=== PATIENT | male | born 1995 | race Caucasian/White ===

== ENCOUNTER 2017-09-15 20:01 | Emergency (ER) | payer OTHER, MEDICAID ==
[~2017-09-15] VITALS: Ht 188 cm; Wt 191.4 kg
--- OUTSIDE RECORDS SUMMARY | 2017-09-15 20:16 | External Medical Summary Rpt | CCD ---
Author Author SIOBHAN Address Unknown Phone Purpose Continuity of Care Document - through 2016
--- OUTSIDE RECORDS SUMMARY | 2017-09-15 20:17 | External Medical Summary Rpt | CCD ---
Author Author , SIOBHAN MCCANN Address Unknown Phone [email or web address] Immunization Name Date Rout CVX Reac Dose Comm Prov Is Faci e tion ent ider Refu lity Give sed n MMR 01- 3 999 Hist H191 No H191 0-19 oric 96 al Info rmat ion - Sour ce Unsp ecif ied DTP- -3 22 999 Hist H191 No H191 Hib 0-19 oric 96 al Info rmat ion - Sour ce Unsp ecif ied
--- OUTSIDE RECORDS SUMMARY | 2017-09-15 20:17 | External Medical Summary Rpt | CCD ---
Author Author , SIOBHAN MCCANN Address Unknown Phone [email or web address] Immunization Name Date Rout CVX Reac Dose [...]
--- OUTSIDE RECORDS SUMMARY | 2017-09-15 20:17 | External Medical Summary Rpt | CCD ---
Author Author [employer] Organization [employer] Address Unknown Phone Unavailable Purpose Continuity of Care Document - through 2016
--- OUTSIDE RECORDS SUMMARY | 2017-09-15 20:17 | External Medical Summary Rpt ---
Author Author SIOBHAN Moreira, [employer] Organization [employer] Address Unknown Phone Unavailable
--- NOTE | 2017-09-15 20:52 | Urgent Treatment Center Report ---
History of Present Issue Date/Time Seen by Provider 09/15/172051 Visit Reason Pt arrived:Walked Presenting Problem:BILATERAL EAR PAIN AND SORE THROAT Location if Accident: Onset of symptoms date/time:/ or onset unknown for:MEDICAL HX UNKNOWN Have you (or family members/close friends) recently traveled outside the [place]? N If Yes, where/when: Have you had exposure to infectious disease within the past month? TB? Other? Specify: c/o sore throat, darrius ear pain, rhinorrhea, nasal congestion, cough. Started w/ sore throat 2-3 days ago then other symptoms gradually started. Darrius ear pain described as pressure and primarily noticed with swallowing. No known fevers, aches, chills. Gargling warm salt water and cough drops help. No known sick contacts. Source patient Exam Limitations no limitations ALLERGIES Coded Allergies: No Known Allergies (09/15/17) History Medical History General CAD? No Angina: No MD: No Hypertension? No Hyperlipidemia? No CHF? No DVT? No PE? No COPD? No Asthma? Yes Anemia? No GERD? No Gastric ulcers? No GI Bleed? No Hernia? No Thyroid Problems? No Hypothyroidism? No CVA? No Seizures? No Diabetes? No Renal Insuffiency? No UTI? No Stones? No BPH? No GB Disease: No Nephritic Syndrome? No Asplenia? No Hepatitis? No Sickle Cell Disease? No Arthritis? No Migraines? No Cataracts? No Glaucoma? No MRSA? No HIV? No TB? No Anxiety? No Depression? No Cancer? No More? No Immunization HX DT/Tetanus 1-4 Years Ago Surgical Hx Previous Surgery?Y L LEG--REMOVED CYST Social History Smoking Hx Smoker: Never Smoker Tobacco: No Alcohol Alcohol: No Review of Systems All Other Systems Reviewed and Negative Constitutional see HPI, denies malaise Eyes denies drainage ENT see HPI. denies: ear discharge, throat swelling. Respiratory see HPI, cough (nonprod), denies shortness of breath, denies wheezing Gastrointestinal denies no symptoms reported Musculoskeletal denies joint pain Skin denies rash Psychiatric/Neurological denies headache Physical Exam Vital Signs Vital Signs Date Time Temp Pulse Resp B/P Pulse O2 O2 Flow FiO2 Ox Delivery Rate 09/15 2133 98.2 119 20 169/92 98 09/15 2027 98.2 119 20 169/92 98 General Appearance no apparent distress, obese Eye Exam - bilateral eye normal exam Ear, Nose, Throat darrius EAC and TMs normal x/ scant cerumen darrius; thick nasal drianage left nostril; clear PND Neck non-tender, supple Respiratory Status No: respiratory distress, productive cough, non productive cough. Lung Sounds anterior: lungs clear. posterior: lungs clear. bilateral: lungs clear. Cardiovascular no peripheral edema, no murmur, tachycardia Neurologic alert, oriented x 3 Mental status normal mood/affect Skin normal color, warm/dry Lymphatic no adenopathy Medical Decision Making LABS/Meds/Orders Pt receiving controlled substance in ED? No Results/Orders Laboratory Tests 09/15/172038: Group A Strep Screen NOT DETECTED Orders Procedure Date/time Status [facility] STREP SCREEN 09/15 2039 Complete Departure Departure Time of Disposition 2125 Disposition DC Home or Self Care(routine) Clinical Impression Primary Impression: Viral upper respiratory illness Condition STABLE Referrals Farooq MCKEON,A.C. (Family) IMMEDIATELY for new or worsening symptoms OR no noticeable improvement over the next 72 hours. 911 for difficulty breathing or swallowing. Patient Instructions DI for Viral Upper Respiratory Infection -- Adult Additional Instructions * No sign of bacterial infection. Likely viral. Virus can take 7-14 days to run their course * Monitor Temp. Follow up if fever develops * Encourage fluids, water, gatorade, powerade, pedialyte if infant/toddler/child * warm salt water gargles * warm fluids * sore throat lozenges * sleep elevated * humidifier/vaporizer * flonase 2 sprays each nostril daily but may take 2-3 days to notice improvement with it. * Bromfed may cause drowsiness. Know how it effects you (or your child) before driving, caring for small children, or sending your child to school. No other antihistamines/allergy medications while taking bromfed. * * Your throat swab was sent for culture. Those results are typically sent to your primary care. Be sure to follow up in 2-3 days if no improvement so they can review those results and treat if necessary. If you don't have primary care, I recommend you get one but in the mean time, you will have to return to a walk in clinic. Discharge Counseling Counseled pt/family regarding diagnosis, test results, medications/RX, home care, follow up needs Prescriptions Current Visit Scripts Fluticasone Propionate (Flonase 50 Mcg Nasal Liberal) 2 SPRAY NA DAILY #1 BOT D-METHORPHAN HB/P-EPD HCL/BPM (Bromfed Dm Cough Syrup) 10 ML PO QIDP PRN cough #240 ML at 1073
[2017-09-15] MEDS ORDERED: BROMFED DM COU118 ML PO (21:28)
[2017-09-15] MEDS ORDERED: FLONASE 50 MCG16 GM (21:28)
[2017-09-15 21:33] VITALS: BP 169/92
== END 2017-09-15 21:33 | disposition home or self-care (01) ==
LOC: UTC 20:01
DX: J06.9 Acute upper respiratory infection, unspecified (principal); J45.909 Unspecified asthma, uncomplicated; H66.93 Otitis media, unspecified, bilateral